=== PATIENT | male | born 1970 | race American Indian/Alaskan Native ===

== ENCOUNTER 2021-06-17 15:11 | Emergency (ER) | payer SELFPAY ==
[2021-06-17 15:21] VITALS: BP 157/95
[2021-06-17] MEDS ORDERED: methylPREDNISolone Sod Succinate 125 MG/2 ML INJ IM ONE (16:02)
[2021-06-17] MEDS ORDERED: HYDROcodone/ACETAMINOPHEN 5-325 MG TAB PO ONE (16:02)
--- NOTE | 2021-06-17 16:02 | Emergency Department Report ---
ED Neck Pain/Injury HPI - General Chief Complaint: Neck Pain/Injury Stated Complaint: PINCHED NERVE PAIN ARM BACK Time Seen by Provider: 06/17/21 15:41 Mode of arrival: Ambulatory Limitations: No Limitations - History of Present Illness MD Complaint: neck pain - Related Data Allergies Allergy/AdvReac Type Severity Reaction Status Date / Time No Known Allergies Allergy Unverified 06/17/21 15:17 ED Review of Systems ROS: Stated complaint: PINCHED NERVE PAIN ARM BACK Other details as noted in HPI ED Past Medical Hx - Past Medical History Previous Medical History?: No - Surgical History Past Surgical History?: No ED Physical Exam - General Limitations: No Limitations ED Course Vital Signs 06/17/21 15:19 Temperature 97.2 F L Pulse Rate 64 Respiratory 18 Rate Blood Pressure 157/95 O2 Sat by Pulse 93 Oximetry Critical care attestation.: If time is entered above; I have spent that time in minutes in the direct care of this critically ill patient, excluding procedure time. ED Disposition Condition: Stable
--- NOTE | 2021-06-17 16:13 | Emergency Department Report ---
ED Neck Pain/Injury HPI - General Chief Complaint: Neck Pain/Injury Stated Complaint: PINCHED NERVE PAIN ARM BACK Time Seen by Provider: 06/17/21 15:41 Mode of arrival: Ambulatory Limitations: No Limitations - History of Present Illness Initial Comments: 50-year-old male who denies any significant past medical history presents to the ER today with complaints of severe right-sided neck pain. Patient states that Monday he woke up with a right-sided stiff neck. He states that since then he has been having worsening pain and pain radiating down into his right arm, his right back, and he noticed pain radiating up into his neck recently. He describes it as a sharp and burning pain in his neck and also down into his right arm into his hand and fingers with some numbness, especially his third, fourth and fifth finger. He reports tingling in his third fourth and fifth fingers. He reports increased pain with movement of his neck especially to the right and he states that he has not been able to rest comfortably due to the pain. He denies any recent head or neck injury. He reports no weakness. He reports no headache, vision changes, slurred speech, vision changes facial weakness or numbness. He reports no lower extremity involvement. He denies any fever or chills. He denies any URI symptoms, cough, chest pain or shortness of breath. He states that he has never had this before in the past. He has been taking ibuprofen and doing massages without much relief of his pain. MD Complaint: neck pain -: Gradual, days(s) (3) - Related Data Previous Rx's Medication Instructions Recorded Last Taken Type Acetaminophen/Codeine [Tylenol 1 tab PO Q6H PRN #12 tab 06/17/21 Unknown Rx /Codeine # 3 tab] Metaxalone [Skelaxin] 800 mg PO TID PRN #30 tablet 06/17/21 Unknown Rx predniSONE [Deltasone] 40 mg PO QDAY #8 tab 06/17/21 Unknown Rx Allergies Allergy/AdvReac Type Severity Reaction Status Date / Time No Known Allergies Allergy Verified 06/17/21 16:55 ED Review of Systems ROS: Stated complaint: PINCHED NERVE PAIN ARM BACK Other details as noted in HPI Comment: All other systems reviewed and negative Constitutional: denies: chills, fever Eyes: denies: eye pain, eye discharge, vision change ENT: denies: ear pain, throat pain Respiratory: denies: cough, shortness of breath, SOB with exertion, SOB at rest, wheezing Cardiovascular: denies: chest pain, palpitations, dyspnea on exertion, edema, syncope, paroxysmal nocturnal dyspnea Endocrine: no symptoms reported Gastrointestinal: denies: abdominal pain, nausea, vomiting, diarrhea, constipation, hematemesis, melena, hematochezia Genitourinary: denies: urgency, dysuria, frequency, hematuria, discharge, testicular pain, testicular mass Musculoskeletal: other (right sided neck pain ) Neurological: paresthesias. denies: headache, weakness, numbness, confusion, abnormal gait, vertigo Psychiatric: denies: anxiety, depression, auditory hallucinations, visual hallucinations, homicidal thoughts, suicidal thoughts Hematological/Lymphatic: denies: easy bleeding, easy bruising ED Past Medical Hx - Past Medical History Previous Medical History?: No - Surgical History Past Surgical History?: No - Medications Home Medications: Home Medications Medication Instructions Recorded Confirmed Last Taken Type Acetaminophen/Codeine [Tylenol 1 tab PO Q6H PRN #12 tab 06/17/21 Unknown Rx /Codeine # 3 tab] Metaxalone [Skelaxin] 800 mg PO TID PRN #30 tablet 06/17/21 Unknown Rx predniSONE [Deltasone] 40 mg PO QDAY #8 tab 06/17/21 Unknown Rx ED Physical Exam - General Limitations: No Limitations General appearance: alert, in no apparent distress - Head Head exam: Present: atraumatic, normocephalic, normal inspection - Eye Eye exam: Present: normal appearance, PERRL, EOMI Pupils: Present: normal accommodation - ENT ENT exam: Present: normal exam, mucous membranes moist - Neck Neck exam: Present: normal inspection, tenderness (Moderate tenderness to the right paraspinal muscle and right trapezius with significant amount of spasm was noted to those muscles of the posterior neck. No vertebral point tenderness.), full ROM, other (Increased pain with range of motion of the neck to the right but otherwise he has full range of motion of the neck). Absent: meningismus - Respiratory Respiratory exam: Present: normal lung sounds bilaterally, decreased breath sounds. Absent: respiratory distress, wheezes, rales, rhonchi - Cardiovascular Cardiovascular Exam: Present: regular rate, normal rhythm, normal heart sounds - GI/Abdominal GI/Abdominal exam: Present: soft. Absent: distended, tenderness, guarding, rebound, rigid - Neurological Exam Neurological exam: Present: alert, oriented X3, CN II-XII intact, normal gait - Expanded Neurological Exam Expanded Patient oriented to: Present: person, place, time Speech: Present: fluid speech Cranial nerves: EOM's Intact: Normal, Gag Reflex: Normal, Tongue Deviation: Normal, Facial Sensation: Normal Sensory exam: Upper Extremity Light Touch: Normal, Lower Extremity Light Touch: Normal Motor strength exam: RUE: 5, LUE: 5, RLE: 5, LLE: 5 Best Eye Response ([place]): (4) open spontaneously Best Motor Response ([place]): (6) obeys commands Best Verbal Response ([place]): (5) oriented [place] Total: 15 - Psychiatric Psychiatric exam: Present: normal affect, normal mood - Skin Skin exam: Present: intact ED Course Vital Signs 06/17/21 06/17/21 06/17/21 15:19 16:29 16:30 Temperature 97.2 F L Pulse Rate 64 80 Respiratory 18 18 Rate Blood Pressure 157/95 O2 Sat by Pulse 93 97 98 Oximetry 06/17/21 17:17 Temperature Pulse Rate Respiratory 16 Rate Blood Pressure O2 Sat by Pulse Oximetry ED Medical Decision Making - Radiology Data Radiology results: report reviewed Patient: NAYELY SIMON MR#: [id number] : 1970 Acct:[id number] Age/Sex: 50 / M ADM Date: 06/17/21 Loc: ED Attending Dr: Ordering Physician: CORBIN CALDERON Date of Service: 06/17/21 Procedure(s): CT cervical spine wo con Accession Number(s): [id number] cc: CORBIN CALDERON CT CERVICAL SPINE: 06/17/2021 INDICATION / CLINICAL INFORMATION: severe right neck pain. COMPARISON: None available. FINDINGS: CT images of the cervical spine were obtained. Images are evaluated in the axial, coronal, and sagittal planes. There is no evidence of acute abnormality. There is no evidence of fracture or dislocation. Right convex scoliosis of the cervical spine is present centered at the cervicothoracic junction. Degenerative disc space narrowing and osteophyte formation is present at the C4-5, C5-6, and C6-7 levels. There is no evidence of osseous canal or foraminal narrowing. LEVEL BY LEVEL ANALYSIS: . CRANIOCERVICAL JUNCTION: Unremarkable. PARASPINAL STRUCTURES: Incidental note is made of a lipoma in the right dorsal paraspinal musculature. This is of no clinical significance. Incidental note is made of a relatively hypodense 3.1 cm mass associated with the inferior aspect of the left lobe of thyroid gland. IMPRESSION: No acute abnormality. Degenerative changes. INCIDENTAL THYROID NODULE RECOMMENDATIONS Nonpalpable nodules detected on US or other anatomic imaging studies are termed incidentally discovered nodules or incidentalomas. Nonpalpable nodules have the same risk of malignancy as palpable nodules with the same size. Generally, only nodules >1 cm should be evaluated, since they have a greater potential to be clinically significant cancers. (GRETCHEN, 2009). Follow up for incidental thyroid nodules <1 cm is not recommended. In patients <35 years with an incidental thyroid nodule detected on CT, MRI, or extrathyroidal ultrasound, dedicated thyroid ultrasound is recommended if the nodule is 1 cm, has no suspicious imaging features, and if the patient has normal life expectancy. In patients 35 years with an incidental thyroid nodule detected on CT, MRI, or extrathyroidal ultrasound, dedicated thyroid ultrasound is recommended if the nodule is 1.5 cm, has no suspicious imaging features, and if the patient has normal life expectancy. All CT scans at this location are performed using dose reduction to ALARA by means of automated exposure control. Signer Name: Rui Davis MD Signed: 06/17/2021 5:15 PM Workstation Name: [id number] Transcribed By: AO Dictated By: Rui Davis MD Electronically Authenticated By: Rui Davis MD Signed Date/Time: 06/17/211714 DD/ 11 TD/TT: [facility] [address] [place] [address] Cat Scan Report Signed Patient: NAYELY SIMON MR#: [id number] : 1970 Acct:[id number] Age/Sex: 50 / M ADM Date: 06/17/21 Loc: ED Attending Dr: Ordering Physician: CORBIN CALDERON Date of Service: 06/17/21 Procedure(s): CT head/brain wo con Accession Number(s): [id number] cc: CORBIN CALDERON CT BRAIN: 06/17/2021 INDICATION / CLINICAL INFORMATION: paresthesia right arm. COMPARISON: None available. FINDINGS: BRAIN/INTRACRANIAL STRUCTURES: Unenhanced CT images of the brain demonstrate no evidence of acute abnormality. Ventricles and sulci are within normal limits of size and shape for a patient of this age. There is no evidence of ischemic injury, hemorrhage, or mass. There are no abnormal extra axial fluid collections. EXTRACRANIAL STRUCTURES: Unremarkable. IMPRESSION: No acute abnormality. Negative unenhanced CT of the brain. All CT scans at this location are performed using dose reduction to ALARA by means of automated exposure control. Signer Name: Rui Davis MD Signed: 06/17/2021 5:05 PM Workstation Name: [id number] Transcribed By: KILLIAN Dictated By: Rui Davis MD Electronically Authenticated By: Rui Davis MD Signed Date/Time: 06/17/211704 DD/ 03 TD/TT: - Medical Decision Making 50-year-old male who denies any significant past medical history presents to the ER today with complaints of severe right-sided neck pain. Patient states that Monday he woke up with a right-sided stiff neck. He states that since then he has been having worsening pain and pain radiating down into his right arm, his right back, and he noticed pain radiating up into his neck recently. He describes it as a sharp and burning pain in his neck and also down into his right arm into his hand and fingers with some numbness, especially his third, fourth and fifth finger. He reports tingling in his third fourth and fifth fingers. He reports increased pain with movement of his neck especially to the right and he states that he has not been able to rest comfortably due to the pain. He denies any recent head or neck injury. He reports no weakness. He reports no headache, vision changes, slurred speech, vision changes facial weakness or numbness. He reports no lower extremity involvement. He denies any fever or chills. He denies any URI symptoms, cough, chest pain or shortness of breath. He states that he has never had this before in the past. He has been taking ibuprofen and doing massages without much relief of his pain. Patient currently resting comfortably. He reports improvement of his symptoms after pain meds, muscle relaxers and steroids given here in the ER. Patient is awake alert and oriented x3, he has a normal gait, and he has no focal neurological deficits on exam. He is not toxic or ill-appearing. He has no meningeal signs on exam. His VS are stable. CT of the head shows nothing acute. CT of the cervical spine shows Degenerative disc space narrowing and osteophyte formation is present at the C4-5, C5-6, and C6-7 levels. As well as some incidental finding of a lipoma and thyroid mass. Otherwise CT of the cervical spine shows nothing else acute. I suspect his symptoms symptoms are likely related to cervical radiculopathy at this time, especially given that his symptoms started after he woke up with neck pain, he does have reproducible pain on palpation of the right side of the neck with associated muscle spasm and also he has reproducible pain with rotation of his neck to the right and he also has findings on CT cervical spine of degenerative disc disease which could mean that he may have a pinched nerve which could be causing his symptoms.. I do not suspect TIA, CVA, carotid artery dissection or vertebral artery dissection or any other emergent conditions requiring any additional testing, admission, or specialist consult at this time. Discussed case with Dr John, he agree with work up, suspected dx of cervical radiculopathy and plan for discharge. Discussed imaging results with patient. Discussed suspected diagnosis and treatment plan with patient. Also discussed incidental findings of lipoma and thyroid mass I recommend that he follow-up closely with his primary care doctor for monitoring of his thyroid and ultrasound. He was also given referral information to orthospine specialist for an outpatient MRI of his cervical spine. Patient expressed understanding of his instructions and agreed with plan. Patient was stable at time of d/c. Critical care attestation.: If time is entered above; I have spent that time in minutes in the direct care of this critically ill patient, excluding procedure time. ED Disposition Clinical Impression: Neck muscle spasm, Cervical radiculopathy, DDD (degenerative disc disease), cervical, Lipoma, Thyroid nodule Disposition: HOME / SELF CARE / HOMELESS Is pt being admited?: No Does the pt Need Aspirin: No Condition: Stable Instructions: Cervical Radiculopathy, Muscle Cramps and Spasms, Degenerative Disk Disease, Lipoma Additional Instructions: Recommend taking the prednisone, the muscle relaxer and the Tylenol threes as prescribed. I recommend that you follow-up closely with the orthospine specialist listed in your discharge instructions for an outpatient MRI of your cervical spine. I also recommend follow-up with your primary care doctor for close follow-up with a thyroid nodule that was seen on your CT scan. Return to the ER if your symptoms changes or worsens in any way. Prescriptions: predniSONE [Deltasone] 40 mg PO QDAY #8 tab Metaxalone [Skelaxin] 800 mg PO TID PRN #30 tablet PRN Reason: Muscle Spasm Acetaminophen/Codeine [Tylenol /Codeine # 3 tab] 1 tab PO Q6H PRN #12 tab PRN Reason: Pain Referrals: SEEMA LANZA MD [Staff Physician] - 3-5 Days (Primary Care physician ) [facility] [Provider Group] - 3-5 Days (Primary care physician ) [facility] [Provider Group] - 3-5 Days (Orthospine specialist) Forms: Work/School Release Form(ED) Time of Disposition: 18:47 Print Language: ISRAELI
[2021-06-17] MEDS ORDERED: METAXALONE 800 MG TAB PO ONE (17:00)
--- NOTE | 2021-06-17 17:09 | Cat Scan Report ---
CT BRAIN: 06/17/2021 INDICATION / CLINICAL INFORMATION: paresthesia right arm. COMPARISON: None available. FINDINGS: BRAIN/INTRACRANIAL STRUCTURES: Unenhanced CT images of the brain demonstrate no evidence of acute abn ormality. Ventricles and sulci are within normal limits of size and shape for a patient of this age. There is no evidence of ischemic injury, hemorrhage, or mass. There are no abnormal extra axial fluid collections. EXTRACRANIAL STRUCTURES: Unremarkable. IMPRESSION: No acute abnormality. Negative unenhanced CT of the brain. All CT scans at this location are performed using dose reduction to ALARA by means of automated expos ure control. Signer Name: Rui Davis MD Signed: 06/17/2021 5:05 PM Workstation Name: [id number]
--- NOTE | 2021-06-17 17:20 | Cat Scan Report ---
CT CERVICAL SPINE: 06/17/2021 INDICATION / CLINICAL INFORMATION: severe right neck pain. COMPARISON: None available. FINDINGS: CT images of the cervical spine were obtained. Images are evaluated in the axial, coronal, and sagitt al planes. There is no evidence of acute abnormality. There is no evidence of fracture or dislocation. Right convex scoliosis of the cervical spine is present centered at the cervicothoracic junction. Degenerative disc space narrowing and osteophyte formation is present at the C4-5, C5-6, and C6-7 lev els. There is no evidence of osseous canal or foraminal narrowing. LEVEL BY LEVEL ANALYSIS: . CRANIOCERVICAL JUNCTION: Unremarkable. PARASPINAL STRUCTURES: Incidental note is made of a lipoma in the right dorsal paraspinal musculature . This is of no clinical significance. Incidental note is made of a relatively hypodense 3.1 cm mass associated with the inferior aspect of the left lobe of thyroid gland. IMPRESSION: No acute abnormality. Degenerative changes. INCIDENTAL THYROID NODULE RECOMMENDATIONS Nonpalpable nodules detected on US or other anatomic imaging studies are termed incidentally discover ed nodules or incidentalomas. Nonpalpable nodules have the same risk of malignancy as palpable nodule s with the same size. Generally, only nodules >1 cm should be evaluated, since they have a greater po tential to be clinically significant cancers. (GRETCHEN, 2009). Follow up for incidental thyroid nodules <1 cm is not recommended. In patients <35 years with an incidental thyroid nodule detected on CT, MRI, or extrathyroidal ultras ound, dedicated thyroid ultrasound is recommended if the nodule is 1 cm, has no suspicious imaging fe atures, and if the patient has normal life expectancy. In patients 35 years with an incidental thyroid nodule detected on CT, MRI, or extrathyroidal ultraso und, dedicated thyroid ultrasound is recommended if the nodule is 1.5 cm, has no suspicious imaging f eatures, and if the patient has normal life expectancy. All CT scans at this location are performed using dose reduction to ALARA by means of automated expos ure control. Signer Name: Rui Davis MD Signed: 06/17/2021 5:15 PM Workstation Name: [id number]
== END 2021-06-17 19:47 | disposition home or self-care (01) ==
LOC: ED 15:11
DX: M62.838 Other muscle spasm (principal); M50.10 Cervical disc disorder with radiculopathy, unspecified cervical region; D17.9 Benign lipomatous neoplasm, unspecified; E04.1 Nontoxic single thyroid nodule; Z79.899 Other long term (current) drug therapy
CPT/HCPCS: 70450; 72125; 96372; 99283; J2930